=== PATIENT | male | born 1970 | race Caucasian/White ===

== ENCOUNTER 2020-07-09 11:58 | Outpatient (CLI) | payer OTHER, SELFPAY ==
--- NOTE | ~2020-07-09 | XR_ITS ---
EXAMINATION: XR chest 2V DATE: 07/09/2020 12:27 INDICATION: Fever and body aches TECHNIQUE: PA and lateral views of the chest are obtained. COMPARISON: 12/18/2014 FINDINGS: Multiple tiny nodular opacities have developed throughout all lung zones since the prior ex amination. There is no pleural effusion or pneumothorax. The cardiomediastinal silhouette is normal. There is moderate thoracic spondylosis. Anterior wedging of the midthoracic spine is unchanged. IMPRESSION: 1. Multiple small new pulmonary nodules which could reflect granulomatous disease however further tian luation with CT of the chest is recommended. Reviewed, dictated and finalized at location A. IMPRESSION: 1. Multiple small new pulmonary nodules which could reflect granulomatous disea se however further evaluation with CT of the chest is recommended.
[2020-07-09 12:39] LABS: Basophils Absolute Auto 0.02 K/mm3 (0.00-0.10); Basophils Percent Auto 0.3 % (0.0-1.0); Eosinophils Absolute Auto 0.03 K/mm3 (0.02-0.50); Eosinophils Percent Auto 0.5 % (1.0-6.0); Hematocrit 47.5 % (40.0-54.0); Hemoglobin 16.7 g/dL (14.0-18.0); Immature Granulocyte Absolute 0.02 K/mm3 (0.00-0.00); Immature Granulocyte Percent A 0.3 % (0.0-0.0); Lymphocytes Absolute Auto 1.33 K/mm3 (1.10-4.50); Mean Corpuscular HGB Conc 35.2 g/dL (32.0-36.0); Mean Corpuscular Volume 88.3 fL (78.0-102.0); Mean Platelet Volume 9.3 fl (8.7-11.0); Monocytes Absolute Auto 0.72 K/mm3 (0.10-0.90); Monocytes Percent Auto 11.9 % (2.0-11.0); Neutrophils Absolute Auto 3.9 K/mm3 (1.7-7.2); Platelet Count Result 131 K/mm3 (150-420); Red Blood Count 5.38 M/mm3 (4.70-6.10); Red Cell Distribution Width 11.9 % (11.6-14.4); White Blood Count 6.1 K/mm3 (4.8-10.8)
[2020-07-09 13:00] LABS: Add Urine Microscopic? YES; Appearance Urine Clear (Clear); Bilirubin Urine Negative (Negative); Blood Urine Negative (Negative); Color Urine Yellow (Yellow); Glucose Urine UA Negative (Negative); Ketones Urine Trace (Negative); Leukocyte Esterase Ur Negative LEU/UL (Negative); Nitrate Urine Negative (Negative); Protein Urine Trace (Negative); Specific Grav Ur 1.025 (1.010-1.020); Urobilinogen Urine 0.2 mg/dL (0.2-1.0); pH Urine 6.5 (5.0-8.0)
[2020-07-09 13:01] LABS: Influenza Control Valid (Valid)
[2020-07-09 13:06] LABS: Alanine Aminotransferase 100 U/L (16-63); Albumin Level 3.8 g/dL (3.4-5.0); Alkaline Phosphatase 53 U/L (46-116); Anion Gap 10 mmol/L (8-16); Aspartate Amino Transferase 47 U/L (15-37); Bilirubin,Total 0.8 mg/dL (0.00-1.00); Blood Urea Nitrogen 12 mg/dL (7-18); CRP 6.4 mg/dL (0.0-0.9); Carbon Dioxide 25 mmol/L (21-32); Chloride 102 mmol/L (98-108); Estimated Glomerular Filt Rate > 60; Glucose 110 mg/dL (70-99); Osmolality Calculated 284 mOsm/kg (285-295); Potassium 3.8 mmol/L (3.5-5.1); Sodium 137 mmol/L (136-145); Thyroid Stimulating Hormone 0.89 uIU/mL (0.36-3.74); Total Protein 7.7 g/dL (6.4-8.2)
[2020-07-09 13:07] LABS: RBC Urine None seen /hpf (0-2); WBC Urine None seen /hpf (0-3)
[2020-07-09 13:08] LABS: Bacteria Urine Trace /hpf; Squamous Epithelial Cell Urine Few /hpf (Few)
[2020-07-09 13:14] LABS: SARS-CoV-2 RNA PCR Negative (Negative)
[2020-07-12 18:16] LABS: CMV IgG Antibody <0.60 U/mL (<0.60)
[2020-07-13 03:59] LABS: Hepatitis A Antibody IgM Nonreactive; Hepatitis B Core Antibody Nonreactive (Nonreactive); Hepatitis B Surface Antigen Nonreactive (Nonreactive); Hepatitis C Signal to Cutoff 0.03 ratio (<1.00); Hepatitis C Virus Antibody Nonreactive (Nonreactive)
[2020-07-14 11:55] LABS: Lyme Disease Ab (IgM), Blot Negative (Negative); Lyme Disease Ab(IgG), Blot Negative (Negative)
[2020-07-14 15:12] LABS: CMV IgM Antibody <30.00 AU/mL (<30.00)
== END 2020-07-09 11:59 | disposition home or self-care (01) ==
LOC: CHSLAB 12:03
PROVIDERS: PCP Internal Medicine; Visit Provider Internal Medicine
DX: R50.9 Fever, unspecified (principal); T14.8XXA Other injury of unspecified body region, initial encounter; W57.XXXA Bitten or stung by nonvenomous insect and other nonvenomous arthropods, initial encounter; Z20.822 Contact with and (suspected) exposure to COVID-19; R94.5 Abnormal results of liver function studies
CPT/HCPCS: 71046; 80053; 80074; 81001; 84443; 85025; 85055; 86140; 86617; 86644; 86645; 86666; 86757; 87040; 87804; C9803; U0003; U0005

== ENCOUNTER 2020-07-13 10:39 | Outpatient (CLI) | payer OTHER, SELFPAY ==
[2020-07-13 10:48] LABS: Basophils Absolute Auto 0.02 K/mm3 (0.00-0.10); Basophils Percent Auto 0.4 % (0.0-1.0); Eosinophils Absolute Auto 0.07 K/mm3 (0.02-0.50); Eosinophils Percent Auto 1.3 % (1.0-6.0); Hematocrit 49.2 % (40.0-54.0); Hemoglobin 17.6 g/dL (14.0-18.0); Immature Granulocyte Absolute 0.02 K/mm3 (0.00-0.00); Immature Granulocyte Percent A 0.4 % (0.0-0.0); Lymphocytes Absolute Auto 1.42 K/mm3 (1.10-4.50); Lymphocytes Percent Auto 27.3 % (18.0-42.0); Mean Corpuscular HGB Conc 35.8 g/dL (32.0-36.0); Mean Corpuscular Hemoglobin 31.2 pg (27.0-31.0); Mean Corpuscular Volume 87.1 fL (78.0-102.0); Mean Platelet Volume 8.6 fl (8.7-11.0); Monocytes Absolute Auto 0.57 K/mm3 (0.10-0.90); Neutrophils Absolute Auto 3.1 K/mm3 (1.7-7.2); Neutrophils Percent Auto 59.6 % (50.0-70.0); Platelet Count Result 196 K/mm3 (150-420); Red Blood Count 5.65 M/mm3 (4.70-6.10); Red Cell Distribution Width 11.5 % (11.6-14.4); White Blood Count 5.2 K/mm3 (4.8-10.8)
[2020-07-13 11:50] LABS: Alanine Aminotransferase 171 U/L (16-63); Albumin Level 4.1 g/dL (3.4-5.0); Alkaline Phosphatase 57 U/L (46-116); Anion Gap 11 mmol/L (8-16); Aspartate Amino Transferase 76 U/L (15-37); Bilirubin,Total 0.8 mg/dL (0.00-1.00); Blood Urea Nitrogen 17 mg/dL (7-18); Calcium 9.2 mg/dL (8.5-10.1); Carbon Dioxide 25 mmol/L (21-32); Chloride 103 mmol/L (98-108); Estimated Glomerular Filt Rate > 60; Glucose 101 mg/dL (70-99); Osmolality Calculated 289 mOsm/kg (285-295); Potassium 4.4 mmol/L (3.5-5.1); Sodium 139 mmol/L (136-145); Total Protein 7.9 g/dL (6.4-8.2)
== END 2020-07-13 10:40 | disposition home or self-care (01) ==
LOC: CHSLAB 10:41
PROVIDERS: PCP Internal Medicine; Visit Provider Internal Medicine
DX: R50.9 Fever, unspecified (principal); R51.9 Headache, unspecified
CPT/HCPCS: 36415; 80053; 85025

== ENCOUNTER 2020-07-15 07:52 | Outpatient (CLI) | payer OTHER, SELFPAY ==
--- NOTE | ~2020-07-15 | CT_ITS ---
EXAMINATION:CT diagnostic chest w con DATE: 07/15/2020 08:23 INDICATION: Lung nodules. Abnormal chest radiograph. TECHNIQUE: Computed tomography (CT) of the chest was performed with 75 mL Omnipaque 350 intravenous c ontrast. Automated exposure control and iterative reconstruction technique were employed. The dose-le ngth product (DLP) was 360.46 mGy-cm. COMPARISON: Chest 2 views 07/09/2020 FINDINGS: Calcified bilateral pulmonary nodules and calcified left hilar lymph nodes are consistent w ith old granulomatous disease. There is a 4 mm noncalcified nodule at right major fissure, likely luna ign. No pleural effusion. The heart size is normal. No pericardial effusion. There is diffuse hepatic steatosis. There is mild chronic anterior wedging of multiple thoracic vertebral bodies. There is mi ld thoracic spondylosis. IMPRESSION: 1. 4 mm noncalcified pulmonary nodule, likely benign. Reviewed, dictated and finalized at location B.
== END 2020-07-15 07:53 | disposition home or self-care (01) ==
LOC: CHSIMG 07:53
PROVIDERS: PCP Internal Medicine; Visit Provider Internal Medicine
DX: R91.8 Other nonspecific abnormal finding of lung field (principal)
CPT/HCPCS: 71260; Q9967